=== PATIENT | male | born 1955 | race Caucasian/White ===

== ENCOUNTER 2024-09-12 22:15 | Emergency (ER) | payer BC, MEDICARE ==
[~2024-09-12] VITALS: Ht 175.3 cm; Wt 95.3 kg
[2024-09-12 23:02] VITALS: PULSE 91; RESP 19; TEMP 98.8; O2SAT 99
[2024-09-13] LABS: INFLUENZAE A&B ANTIGEN (RAPID) NEGATIVE (NEGATIVE); RESPIRATORY SYNC. VIRUS NEGATIVE (NEGATIVE)
[2024-09-13 00:11] LABS: STREPTOCOCCUS GRP A ANTIGEN NEGATIVE (NEGATIVE)
[2024-09-13] MEDS ORDERED: VENTOLIN HFA18 GM INH (00:18)
[2024-09-13] MEDS ORDERED: PREDNISONE20 MG PO (00:18)
[2024-09-13] MEDS ORDERED: AZITHROMYCIN250 MG PO (00:18)
[2024-09-13 00:26] VITALS: BP 138/74; PULSE 80; RESP 18; TEMP 98
== END 2024-09-13 00:29 | disposition home or self-care (01) ==
LOC: ER 22:20
DX: R05.9 Cough, unspecified (principal); J06.9 Acute upper respiratory infection, unspecified; R53.81 Other malaise; I10 Essential (primary) hypertension; Z11.52 Encounter for screening for COVID-19
CPT/HCPCS: 83518; 87070; 87400; 87420; 99283; U0002